=== PATIENT | male | born 1960 | race Caucasian/White ===

== ENCOUNTER → 2017-05-19 09:05 | Outpatient (CLI) | payer OTHER, SELFPAY ==
[2017-05-19 12:21] LABS: Absolute Lymphocyte Count 1.63 X10^3/ul (0.83-4.51); Absolute Neutrophil Count 3.4 X10^3/uL (2.0-7.7); Basophil# 0.06 X10^3/uL; Eosinophil# 0.31 X10^3/uL; Eosinophils% 5.2 % (0-5); Hematocrit 47.4 % (40-54); Hemoglobin 16.3 g/dl (13.0-16.5); Lymphocyte # 1.63 X10^3/ul (4.0); Lymphocyte % 27.4 % (19-41); Mean Corp Hgb Conc 34.4 g/gl (32-36); Mean Corpuscular Hgb 30.1 pg (27.0-32.0); Mean Corpuscular Volume 87.6 fL (80-94); Mean Platelet Vol. 10.8 fl (6.2-12.0); Monocyte# 0.53 X10^3/uL; Monocyte% 8.9 % (0-10); Neutrophil % 57.2 % (47-70); Platelet Count 197 K/mm3 (150-450); RBC Distribution Width CV 12.5 % (11.6-14.6); RBC Distribution Width SD 39.9 fl (35.1-43.9); Red Blood Count 5.41 M/mm3 (4.6-6.2)
[2017-05-19 12:32] LABS: POSITIVE COUNT NO; POSITIVE DIFFERENTIAL NO; POSITIVE MORPHOLOGY NO
[2017-05-19 12:47] LABS: ALB/GLOB Ratio 1.3 RATIO (0.9-2.4); AST(SGOT) 23 U/L (15-37); Alanine Aminotransfer ALT/SGPT 31 U/L (16-61); Albumin, Serum 3.6 g/dL (3.2-5.0); Alkaline Phosphatase 53 U/L (45-117); BUN 17 mg/dL (7-18); Calcium,Total 8.6 mg/dL (8.5-10.1); Cholesterol 173 mg/dL (200); Creatinine, Serum 1.06 mg/dL (0.70-1.30); EST Glomerular Filtration Rate 77 mL/min (>60); Est Glom Filt Rate - Afr Amer 93 mL/min (>60); Globulin 2.8 g/dL (2.2-4.2); Glucose 110 mg/dL (74-106); Protein, Total 6.4 g/dL (6.4-8.2); Sodium Level 140 mmol/L (136-145); Triglycerides 64 mg/dL
[2017-05-19 12:48] LABS: Anion Gap 9 (5-15); Chloride 105 mmol/L (98-107); High Density Lipoprotein 47 mg/dL; PSA,Total - Annual Screen 1.65 ng/mL (0.00-4.00); Very Low Density Lipoprotein 13 mg/dL (5-40)
[2017-05-19 14:53] LABS: Hemoglobin A1c 5.5 % (4.2-6.3)
[2017-05-20 09:30] LABS: Hep C Antibodies <0.1 s/co ratio (0.0-0.9)
== END ==
PROVIDERS: Visit Provider Family Medicine
DX: Z00.01 Encounter for general adult medical examination with abnormal findings (principal); R17 Unspecified jaundice; R06.09 Other forms of dyspnea; Z12.5 Encounter for screening for malignant neoplasm of prostate
CPT/HCPCS: 36415; 80053; 80061; 83036; 84153; 85025; 86803; G0103

== ENCOUNTER → 2017-07-22 08:15 | Outpatient (CLI) | payer OTHER, SELFPAY ==
--- NOTE | 2017-07-22 08:26 | STE_ITS ---
Reason For Study: DYSPNEA ON EXERTION Stress Results Protocol: Klaus Protocol Maximum Predicted HR: 163 bpm Target HR: 139 bpm% Max imum Predicted HR: 102 % DurationHeart Rate Stage (mm:ss) (bpm) BP BASELINE 62 132/90 STAGE 1 3:00 11 1 152/84 STAGE 2 3:00 12 0 160/90 STAGE 3 3:00 13 6 164/94 STAGE 4 1:30 16 6 / RECOVERY 92 120/90 Stress Duration: 10:30 mm:ss Maximum Stress HR: 166 bpmME TS: 13 Baseline Echocardiogram Findings Stress Echo Wall motion Data Resting WMIntermediate WMStress WM Resting Wall Motion Wall Motion Stress All segments Normal. All segments Hyperkinetic. Ejection Fraction 60 %. Ejection Fraction 75 %. Stress Results Heart rate response: appropriate Blood pressure response: resting hypertension - appropriate response Arrhythmias: none Functional capacity: good Stopped secondary to: dyspnea; leg discomfort. EKG Data The baseline ECG displays normal sinus rhythm. Exercise ECG: no obvious ECG changes. Symptoms with Stress No c/o chest discomfort during exercise / recovery. Interpretation Summary NEGATIVE (ADEQUATE) SINUS ECHOCARDIOGRAM Ordering Physician: Edmundo Solis Referring Physician: Edmundo Solis Performed By: Gissel Torres RDCS
== END ==
PROVIDERS: Family Provider Family Medicine; PCP Family Medicine; Visit Provider Family Medicine
DX: R06.09 Other forms of dyspnea (principal)
CPT/HCPCS: 93017; 93350

== ENCOUNTER → 2020-12-19 11:45 | Outpatient (CLI) | payer OTHER, SELFPAY ==
--- NOTE | 2020-12-19 11:49 | RAD_ITS ---
HISTORY: PAIN. TECHNIQUE: XR Knee Complete 4 Views or More. Number of images including paperwork: 4. COMPARISON: None. FINDINGS: OSSEOUS STRUCTURES: No acute fracture. Small bone islands in the medial femoral condyle incidentally noted. JOINT SPACES: Maintained. No dislocation. Small loose body or ossicle seen medially. RAD/Knee 4 or More Views IMPRESSION: No acute fracture or dislocation identified in the right knee. at 1701 Reported and signed by: Meenakshi Patrick MD Electronically Signed: Meenakshi Patrick MD at 17:00 EDT Tel , Service support ,
== END ==
PROVIDERS: PCP Family Medicine; Referring Provider Family Medicine; Visit Provider Family Medicine
DX: M25.561 Pain in right knee (principal)
CPT/HCPCS: 73564

== ENCOUNTER → 2023-01-14 | Outpatient (CLI) | payer OTHER, SELFPAY ==
[2023-01-14 12:38] LABS: Absolute Lymphocyte Count 1.48 X10^3/uL (0.83-4.51); Absolute Neutrophil Count 4.1 X10^3/uL (2.0-7.7); Basophil# 0.06 X10^3/uL; Eosinophil# 0.11 X10^3/uL; Eosinophils% 1.8 % (0-5); Hematocrit 48.2 % (40-54); Hemoglobin 16.6 g/dL (13.0-16.5); Lymphocyte # 1.48 X10^3/ul (0.83-4.51); Lymphocyte % 23.6 % (19-41); Mean Corp Hgb Conc 34.4 g/dL (32-36); Mean Corpuscular Hgb 30.7 pg (27.0-32.0); Mean Corpuscular Volume 89.1 fL (80-94); Mean Platelet Vol. 10.6 fl (6.2-12.0); Monocyte# 0.49 X10^3/uL; Monocyte% 7.8 % (0-10); NRBC Flagged by Analyzer 0 % (0-5); Neutrophil % 65.5 % (47-70); Platelet Count 226 K/mm3 (150-450); RBC Distribution Width CV 12.1 % (11.6-14.6); RBC Distribution Width SD 39.8 fl (35.1-43.9); Red Blood Count 5.41 M/mm3 (4.6-6.2); White Blood Count 6.3 K/mm3 (4.4-11.0)
[2023-01-14 12:57] LABS: ALB/GLOB Ratio 1.2 RATIO (0.9-2.4); AST(SGOT) 22 U/L (15-37); Alanine Aminotransfer ALT/SGPT 22 U/L (16-61); Albumin, Serum 3.7 g/dL (3.2-5.0); Alkaline Phosphatase 66 U/L (45-117); Anion Gap 5 (5-15); BUN 11 mg/dL (7-18); BUN/Creat Ratio 11.6 RATIO (10-20); Calcium,Total 8.9 mg/dL (8.5-10.1); Chloride 104 mmol/L (98-107); Cholesterol 186 mg/dL (200); Creatinine, Serum 0.95 mg/dL (0.70-1.30); EST Glomerular Filtration Rate 85 mL/min (>60); Est Glom Filt Rate - Afr Amer 103 mL/min (>60); Glucose 107 mg/dL (74-106); High Density Lipoprotein 55 mg/dL; PSA,Total - Annual Screen 3.58 ng/mL (0.00-4.00); Potassium 4.2 mmol/L (3.5-5.1); Protein, Total 6.7 g/dL (6.4-8.2); Sodium Level 137 mmol/L (136-145); Triglycerides 125 mg/dL; Very Low Density Lipoprotein 25 mg/dL (5-40)
[2023-01-14 13:08] LABS: Vitamin D,25 Hydroxy 53.2 ng/mL
== END | disposition home or self-care (01) ==
LOC: BFHLAB 09:49
PROVIDERS: PCP Family Medicine; Referring Provider Family Medicine; Visit Provider Family Medicine
DX: Z00.00 Encounter for general adult medical examination without abnormal findings (principal); Z12.5 Encounter for screening for malignant neoplasm of prostate; E55.9 Vitamin D deficiency, unspecified
CPT/HCPCS: 36415; 80053; 80061; 82306; 84153; 85025; G0103

== ENCOUNTER → 2025-02-22 | Outpatient (CLI) | payer BC, SELFPAY ==
--- NOTE | 2025-02-22 10:54 | RAD_ITS ---
PROCEDURE: CHEST PA AND LATERAL 02/22/2025 REASON FOR EXAM: DYSPNEA TECHNIQUE: Procedure Code: RADCXR Modality: DX Procedure: CHEST PA AND LATERAL FINDINGS: No focal consolidation. No pleural effusion or pneumothorax. Cardiac silhouette is within normal limits. No acute fractures. RAD/Chest PA and Lateral IMPRESSION: No focal consolidations. Reading Location: [facility]
[2025-02-22 12:28] LABS: Hematocrit 43.4 % (40-54); Hemoglobin 14.8 g/dL (13.0-16.5); Immature Granulocytes Count 0.020 X10^3/uL (0.0-0.0); Mean Corp Hgb Conc 34.1 g/dL (32-36); Mean Corpuscular Volume 88.2 fL (80-94); Mean Platelet Vol. 10.8 fl (6.2-12.0); NRBC Flagged by Analyzer 0 % (0-5); Platelet Count 213 K/mm3 (150-450); RBC Distribution Width CV 12.1 % (11.6-14.6); RBC Distribution Width SD 38.7 fl (35.1-43.9); Red Blood Count 4.92 M/mm3 (4.6-6.2); White Blood Count 6.6 K/mm3 (4.4-11.0)
[2025-02-22 13:03] LABS: AST(SGOT) 30 U/L (<=37); Alanine Aminotransfer ALT/SGPT 23 U/L (<=46); Albumin, Serum 4.2 g/dL (3.4-4.8); Alkaline Phosphatase 62 U/L (40-129); Anion Gap 11 (7-18); BUN 16 mg/dL (4-19); BUN/Creat Ratio 16.2 RATIO (10-20); Calcium,Total 9.7 mg/dL (7.6-11.0); Carbon Dioxide 23.5 mmol/L (20.0-29.0); Chloride 105 mmol/L (96-106); Cholesterol 164 mg/dL (<=200); Globulin 2.1 g/dL (2.2-4.2); Glucose 104 mg/dL (70-99); Low Density Lipoprotein Calc. 97 mg/dL; PSA,Total - Annual Screen 4.09 ng/mL (0.02-4.00); Potassium 4.3 mmol/L (3.5-5.1); Triglycerides 81 mg/dL; Very Low Density Lipoprotein 16 mg/dL (5-40); cholesterol:hdl ratio screen 3.18
== END | disposition home or self-care (01) ==
PROVIDERS: PCP Family Medicine; Referring Provider Family Medicine; Visit Provider Family Medicine
DX: Z00.00 Encounter for general adult medical examination without abnormal findings (principal); R06.09 Other forms of dyspnea; Z12.5 Encounter for screening for malignant neoplasm of prostate
CPT/HCPCS: 36415; 71046; 80053; 80061; 84153; 85025; G0103